=== PATIENT | female | born 1935 ===

== ENCOUNTER 2018-05-28 10:38 | Emergency (ER) | payer OTHER ==
[~2018-05-28] VITALS: Ht 152.4 cm; Wt 59.0 kg
[~2018-05-28 10:38] MED LIST: BACTRIM 400-801 TAB; CENTRUM TABLET1 TAB; FOLIC ACID0.4 MG; LEVOXYL150 MCG; LEVOXYL25 MCG; PRILOSEC20 MG; PROTONIX40 MG PO; VITAMIN D400 UNI2
== END 2018-05-28 16:35 | disposition home or self-care (01) ==
LOC: ER 10:38
DX: R19.7 Diarrhea, unspecified (principal)